=== PATIENT | female | born 1995 | race Caucasian/White ===

== ENCOUNTER 2022-01-05 22:13 | Emergency (ER) | payer MEDICAID, SELFPAY ==
[2022-01-05 22:14] VITALS: BP 127/83; PULSE 79; RESP 24; TEMP 36.6; O2SAT 98; BMI 36.3
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
[2022-01-05] MEDS: HYDROcodone Bitartrate/Apap 5/325 Tablet PO (22:40)
[2022-01-05 22:41] VITALS: BP 135/78; PULSE 72; RESP 14; TEMP 36.9; O2SAT 98
== END 2022-01-05 22:50 | disposition home or self-care (01) ==
LOC: ED 22:49
PROVIDERS: Emergency Provider Emergency Medicine; Visit Provider Emergency Medicine
DX: S30.1XXA Contusion of abdominal wall, initial encounter (principal); F17.210 Nicotine dependence, cigarettes, uncomplicated; Y04.8XXA Assault by other bodily force, initial encounter
CPT/HCPCS: 99283

== ENCOUNTER 2022-06-30 05:34 | Emergency (ER) | payer MEDICAID, SELFPAY ==
[2022-06-30 05:34] VITALS: PULSE 60; RESP 16; TEMP 36.4; O2SAT 97; BMI 33.4
--- NOTE | 2022-06-30 06:01 | RAD_ITS ---
STUDY: X-RAY CHEST REASON FOR EXAM: Female, 27 years old. Cough TECHNIQUE: Portable, upright, AP chest radiograph COMPARISON: None. FINDINGS: The lungs are clear and expanded. There is no demonstrated pleural abnormality. Normal size heart. Normal mediastinum and tonia. Normal visualized pulmonary arteries. Normal visualized aortic arch and descending thoracic aorta. There is no demonstrated abnormality of the visualized soft tissue structures of the upper abdomen. RAD/Chest 1 View (Portable) IMPRESSION: No acute abnormal cardiopulmonary finding. Electronically Signed: Michael Metzger MD at 6:20 EDT ,
[2022-06-30 06:06] VITALS: PULSE 83; RESP 18; O2SAT 97
[2022-06-30] MEDS: Ipratropium/Albuterol Sulfate 3 ML AMPUL.NEB INHALATION (06:06)
[2022-06-30] MEDS: proMETHazine 25 MG Tablet PO (06:07)
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
[2022-06-30 07:05] VITALS: BP 116/72; PULSE 78; RESP 16; O2SAT 98
== END 2022-06-30 07:07 | disposition home or self-care (01) ==
PROVIDERS: Emergency Provider Emergency Medicine; Visit Provider Emergency Medicine
DX: J45.901 Unspecified asthma with (acute) exacerbation (principal); F17.210 Nicotine dependence, cigarettes, uncomplicated
CPT/HCPCS: G0463; 71045; 87428; 94640; 99251; 99284